=== PATIENT | male | born 1940 | race Caucasian/White ===

== ENCOUNTER 2017-09-04 16:35 | Inpatient (IN) | payer OTHER ==
[~2017-09-04] VITALS: Ht 175.3 cm; Wt 82.5 kg
[~2017-09-04 16:35] MED LIST: ACET-6 PO; ASPI81TA27 PO; B-COTAB76 OR; CALC600T57 PO; CARV6.2551 PO; CLOP75TA41 PO; NIAC250C16 PO; OMEGCAP28 OR; SIMV10TA84 PO; TERA2CAP45 PO; VITA200T2 PO; [UNRECOGNIZED DRUG - CODE] PO
[2017-09-04] MEDS ORDERED: SODIUM CHLORIDE 0.9% 1,000 ML IV SCH ×2 (17:15→18:45)
[2017-09-04] MEDS ORDERED: MORPHINE SULFATE 10 MG/ML INJ 1ML SDV IV PRN (17:15)
[2017-09-04] MEDS ORDERED: NITROGLYCERIN 0.4 MG SL TAB SL PRN (17:15)
[2017-09-04 17:21] VITALS: BP 146/79
[2017-09-04 18:13] LABS: Basophils # (auto) 0.1 uL; Basophils % (auto) 0.7 % (0.0-2.0); Eosinophils # (auto) 0.2 uL; Eosinophils % (auto) 2.3 % (0.0-7.0); Hematocrit 43.8 % (41.0-53.0); Hemoglobin 14.9 g/dL (13.5-17.5); Lymphocytes # (auto) 1.3 uL; Lymphocytes % (auto) 17.2 % (10.0-50.0); Mean Corpuscular Volume 97.1 fL (80.0-100.0); Monocytes # (auto) 0.8 uL; Monocytes % (auto) 11.1 % (0.0-12.0); Neutrophils # (auto) 5.2 uL; Neutrophils % (auto) 68.7 % (37.0-80.0); Nucleated Red Blood Cells % 0.1 %; Platelet Count (auto) 132 10^3/uL (140-450); Red Blood Cells 4.51 10^6/uL (4.5-5.90); Red Cell Distribution Width 13.7 % (11.8-14.3); White Blood Cell 7.5 10^3/uL (4.4-10.8)
[2017-09-04 18:22] LABS: INR 1.04 (0.9-1.15); Partial Thromboplastin Time 27.6 sec (23.78-33.04); Prothrombin Time 11.1 sec (9.27-12.13)
[2017-09-04 18:25] LABS: BUN/Creatinine Ratio 13.4; Calcium 8.6 mg/dL (8.5-10.1); Potassium 4.3 mmol/L (3.5-5.1)
[2017-09-04] MEDS ORDERED: QUET50TA PO (18:26)
[2017-09-04] MEDS ORDERED: TAM04C PO (18:26)
[2017-09-04] MEDS ORDERED: FINA5TAB4 PO (18:26)
[2017-09-04] MEDS ORDERED: LORA1TAB12 PO (18:26)
[2017-09-04] MEDS ORDERED: ACETAMINOPHEN 500 MG TAB PO PRN (18:30)
[2017-09-04] MEDS ORDERED: TAMSULOSIN HYDROCHLORIDE 0.4 MG CAP PO SCH (18:41)
[2017-09-04] MEDS ORDERED: LORazepam 0.5 MG TAB PO PRN ×2 (19:00→19:15)
[2017-09-04] MEDS: FATTY ACIDS OMEGA OR SCH (21:44)
[2017-09-04] MEDS: [UNRECOGNIZED DRUG - OTHER] PO SCH (21:44)
[2017-09-04] MEDS: OMEGA FA OR SCH (21:44)
[2017-09-04] MEDS: CIPROFLOXACIN HYDROCHLORIDE 250 MG TAB PO SCH (21:44)
[2017-09-04] MEDS: SAW PALMETTO PO SCH (21:44)
[2017-09-04] MEDS: NIACIN 100 MG TAB PO SCH (21:45)
[2017-09-04] MEDS: CARVEDILOL 3.125 MG TAB PO SCH (21:45)
[2017-09-04 22:00] VITALS: BP 141/74
[2017-09-04] MEDS ORDERED: PRAVASTATIN SODIUM 20 MG TAB PO SCH (22:00)
[2017-09-04] MEDS ORDERED: MORPHINE SULF INJ 2 MG/ML SYRINGE 1ML IV PRN (22:00)
[2017-09-04] MEDS ORDERED: MORPHINE SULFATE 4 MG/ML SYR/VIAL IV PRN (22:00)
[2017-09-04] MEDS ORDERED: QUEtiapine FUMARATE 100 MG TAB PO SCH (22:00)
[2017-09-04] MEDS ORDERED: TERAZOSIN HCL 1 MG CAP PO SCH (22:00)
[2017-09-05] MEDS ORDERED: LACTULOSE 20Gm/30ML SOLN PO PRN (01:00)
[2017-09-05] MEDS ORDERED: KETOROLAC TROMETH 30 MG/ML 1ML VIAL IV ONE (01:00)
[2017-09-05 04:42] VITALS: BP 122/69
[2017-09-05] MEDS: NIACIN 100 MG TAB PO SCH (05:47)
[2017-09-05] MEDS: FATTY ACIDS OMEGA OR SCH (05:47)
[2017-09-05] MEDS: OMEGA FA OR SCH (05:47)
[2017-09-05 08:32] VITALS: BP 146/83
[2017-09-05] MEDS ORDERED: CEFAZOLIN IV ONE (08:51)
[2017-09-05] MEDS ORDERED: CIPROFLOXACIN 400MG/200ML 200 ML IV ONE (08:58)
[2017-09-05] MEDS ORDERED: LIDOCAINE HCL 2 %PF INJ 10ML AMP IJ ONE (09:08)
[2017-09-05] MEDS ORDERED: DEXAMETHASONE SOD PHOS 10MG/1ML VIAL INJ ONE (09:08)
[2017-09-05] MEDS ORDERED: ePHEDrine SULFATE 50 MG/ML AMP ONE (09:08)
[2017-09-05] MEDS ORDERED: fentaNYL CITRATE 100 MCG/2 ML VL ONE (09:09)
[2017-09-05] MEDS ORDERED: PROPOFOL 10 MG/ML 20 ML IV ONE (09:09)
[2017-09-05] MEDS ORDERED: ONDANSETRON HCL 4 MG/2 ML VIAL ONE (09:09)
[2017-09-05] MEDS ORDERED: ePHEDrine SULFATE 50 MG/ML AMP IV PRN (09:15)
[2017-09-05] MEDS ORDERED: LABETALOL HCL 5 MG/ML 4ML SYRINGE IV PRN (09:15)
[2017-09-05] MEDS ORDERED: HYDROmorphone HCL 2 MG/ML VL IV PRN ×2 (09:15)
[2017-09-05] MEDS ORDERED: ONDANSETRON HCL 4 MG/2 ML VIAL IV ONE (09:15)
[2017-09-05] MEDS ORDERED: hydrALAZINE HCL 20 MG/ML VL IV PRN (09:15)
[2017-09-05] MEDS ORDERED: METOCLOPRAMIDE HCL 5MG/ml INJ 2ml VIAL IV ONE (09:15)
[2017-09-05] MEDS ORDERED: FOLIC ACI OR SCH (10:00)
[2017-09-05] MEDS: SAW PALMETTO PO SCH (10:00)
[2017-09-05] MEDS: CARVEDILOL 3.125 MG TAB PO SCH (10:00)
[2017-09-05] MEDS ORDERED: B COMPLEX OR SCH (10:00)
[2017-09-05] MEDS ORDERED: [UNRECOGNIZED DRUG - OTHER] PO SCH (10:00)
[2017-09-05] MEDS ORDERED: FINASTERIDE 5 MG TAB PO SCH (10:00)
[2017-09-05] MEDS: [UNRECOGNIZED DRUG - OTHER] PO SCH (10:00)
[2017-09-05] MEDS ORDERED: BIOTIN OR SCH (10:00)
[2017-09-05] MEDS: CIPROFLOXACIN HYDROCHLORIDE 250 MG TAB PO SCH (10:00)
[2017-09-05 12:04] VITALS: BP 132/75
[2017-09-06] MEDS ORDERED: B-COMPLEX W/ C & FOLIC ACID(NEPHROVITE TAB) PO SCH (10:00)
[2017-09-06] MEDS ORDERED: CALCIUM CARB 500 MG CHEW TAB PO SCH (10:00)
== END 2017-09-05 17:37 | disposition home or self-care (01) | DRG 669 ==
LOC: TELE-WESTW 16:35
PROVIDERS: ADMIT Urology; ATTEND Urology
PROC: 0TBC8ZZ Excision of Bladder Neck, Via Natural or Artificial Opening Endoscopic (ICD-10-PCS; principal; 2017-09-05 09:22)
DX: N32.0 Bladder-neck obstruction (principal); N13.8 Other obstructive and reflux uropathy; I11.9 Hypertensive heart disease without heart failure; E78.00 Pure hypercholesterolemia, unspecified; E78.5 Hyperlipidemia, unspecified; I25.2 Old myocardial infarction; N40.1 Benign prostatic hyperplasia with lower urinary tract symptoms; Z96.652 Presence of left artificial knee joint; I25.10 Atherosclerotic heart disease of native coronary artery without angina pectoris; Z82.49 Family history of ischemic heart disease and other diseases of the circulatory system; Z95.5 Presence of coronary angioplasty implant and graft
CPT/HCPCS: 36415; 71045; 80048; 85025; 85610; 85730; 86850; 86900; 86901; J0690; J1100; J1885; J2405; J2704

== ENCOUNTER → 2017-11-09 | Day surgery (SDC) | payer OTHER ==
[2017-11-06 10:28] LABS: Basophils # (auto) 0.1 uL; Basophils % (auto) 1.2 % (0.0-2.0); Eosinophils # (auto) 0.2 uL; Eosinophils % (auto) 4.2 % (0.0-7.0); Hematocrit 46.1 % (41.0-53.0); Hemoglobin 15.4 g/dL (13.5-17.5); Lymphocytes # (auto) 1.1 uL; Lymphocytes % (auto) 22.5 % (10.0-50.0); Mean Corpuscular Hemoglobin 32.5 pg (28.0-32.0); Mean Corpuscular Hgb Conc. 33.5 g/dL (32.0-36.0); Mean Corpuscular Volume 96.9 fL (80.0-100.0); Monocytes # (auto) 0.6 uL; Monocytes % (auto) 12.1 % (0.0-12.0); Neutrophils # (auto) 2.9 uL; Platelet Count (auto) 147 10^3/uL (140-450); Red Blood Cells 4.75 10^6/uL (4.5-5.90); Red Cell Distribution Width 13.5 % (11.8-14.3); White Blood Cell 4.8 10^3/uL (4.4-10.8)
[2017-11-06 10:38] LABS: Urine Bacteria NONE SEEN /hpf (None Seen); Urine Blood Negative /uL (Negative); Urine Specific Gravity 1.021 (1.001-1.035); Urine WBC 7 /hpf (0 - 3)
[2017-11-06 10:42] LABS: Partial Thromboplastin Time 27.8 sec (23.78-33.04); Prothrombin Time 10.7 sec (9.27-12.13)
[2017-11-06 10:45] LABS: BUN/Creatinine Ratio 16.1; Calcium 8.4 mg/dL (8.5-10.1); Potassium 3.8 mmol/L (3.5-5.1)
[~2017-11-09] VITALS: Ht 175.3 cm; Wt 79.8 kg
[~2017-11-09] MED LIST changes: -ACET-6 PO; +B-COTAB59 OR; -B-COTAB76 OR; +CIPROFLOXACIN 400MG/200ML 200 ML IV ONE; +CLOP75TA28 PO; -CLOP75TA41 PO; +ETOMIDATE (2MG/ML) 20ML VIAL IV ONE; +FINA5TAB4 PO; +LIDOCAINE 1% (LOCAL ANESTH.) PF 5ml SDV ONE; +LIDOCAINE HCL 2% TOP JELLY 5ML TOP ONE; +LORA1TAB12 PO; +METOCLOPRAMIDE HCL 5MG/ml INJ 2ml VIAL ONE; +MIDAZOLAM HCL 1MG/1ML-2 ML VIAL ONE; +MORPHINE SULF INJ 2 MG/ML SYRINGE 1ML IV PRN; +NALOXONE HCL 0.4 MG/ML VIAL IV PRN; +NAPR220C PO; +ONDANSETRON HCL 4 MG/2 ML VIAL IV ONE; +QUET50TA PO; +TAM04C PO; -TERA2CAP45 PO; +TURM500C3 OR; -[UNRECOGNIZED DRUG - CODE] PO; +ePHEDrine SULFATE 50 MG/ML AMP ONE; +fentaNYL CITRATE 100 MCG/2 ML VL ONE
[2017-11-09 11:56] VITALS: BP 128/80
== END | disposition home or self-care (01) ==
LOC: SUR 07:30
PROVIDERS: ATTEND Urology
DX: D30.3 Benign neoplasm of bladder (principal); N30.10 Interstitial cystitis (chronic) without hematuria; N32.0 Bladder-neck obstruction; I25.10 Atherosclerotic heart disease of native coronary artery without angina pectoris; I10 Essential (primary) hypertension; M19.90 Unspecified osteoarthritis, unspecified site; N40.1 Benign prostatic hyperplasia with lower urinary tract symptoms; I49.9 Cardiac arrhythmia, unspecified; F32.9 Major depressive disorder, single episode, unspecified; J40 Bronchitis, not specified as acute or chronic; F41.9 Anxiety disorder, unspecified; M06.9 Rheumatoid arthritis, unspecified; Z86.79 Personal history of other diseases of the circulatory system; Z96.652 Presence of left artificial knee joint; Z88.0 Allergy status to penicillin; Z87.891 Personal history of nicotine dependence; Z80.1 Family history of malignant neoplasm of trachea, bronchus and lung; Z98.890 Other specified postprocedural states; Z82.49 Family history of ischemic heart disease and other diseases of the circulatory system
CPT/HCPCS: 36415; 52500; 80048; 81001; 85025; 85610; 85730; 87086; 88307; C1769; J0744; J2250; J2765; J3010; J7030

== ENCOUNTER → 2021-07-25 | Day surgery (SDC) | payer OTHER ==
[~2021-07-25] VITALS: Ht 175.3 cm; Wt 81.6 kg
[~2021-07-25] MED LIST changes: +ASPI-543 PO; -ASPI81TA27 PO; +CALC1TAB92 PO; -CALC600T57 PO; -ETOMIDATE (2MG/ML) 20ML VIAL IV ONE; -FINA5TAB4 PO; +HYDROmorphone HCL 2 MG/ML VL IV PRN; -LIDOCAINE 1% (LOCAL ANESTH.) PF 5ml SDV ONE; -LIDOCAINE HCL 2% TOP JELLY 5ML TOP ONE; -LORA1TAB12 PO; +LORA1TAB23 PO; +METOCLOPRAMIDE HCL 5MG/ml INJ 2ml VIAL IV PRN; -METOCLOPRAMIDE HCL 5MG/ml INJ 2ml VIAL ONE; -MIDAZOLAM HCL 1MG/1ML-2 ML VIAL ONE; +MIDAZOLAM HCL 2MG/2ML 2ml VIAL (1mg/ml) ONE; -MORPHINE SULF INJ 2 MG/ML SYRINGE 1ML IV PRN; -NALOXONE HCL 0.4 MG/ML VIAL IV PRN; -ONDANSETRON HCL 4 MG/2 ML VIAL IV ONE; +ONDANSETRON HCL 4 MG/2 ML VIAL IV PRN; +SUCCINYLCHOLINE CHLORIDE 20 MG/ML 10ML VIAL IV ONE; +TRIAMCINOLONE 40MG/ML 1ML VIAL ONE; -ePHEDrine SULFATE 50 MG/ML AMP ONE
[2021-07-25 14:20] VITALS: BP 158/79
== END | disposition home or self-care (01) ==
LOC: SUR 10:20
PROVIDERS: ATTEND Urology
DX: N39.41 Urge incontinence (principal); N32.0 Bladder-neck obstruction; N21.0 Calculus in bladder; F41.9 Anxiety disorder, unspecified; I25.2 Old myocardial infarction; F32.A Depression, unspecified; I25.119 Atherosclerotic heart disease of native coronary artery with unspecified angina pectoris; Z96.652 Presence of left artificial knee joint; Z88.0 Allergy status to penicillin; Z20.822 Contact with and (suspected) exposure to COVID-19; Z87.891 Personal history of nicotine dependence; Z95.5 Presence of coronary angioplasty implant and graft; Z82.49 Family history of ischemic heart disease and other diseases of the circulatory system; Z80.1 Family history of malignant neoplasm of trachea, bronchus and lung
CPT/HCPCS: 52500; 96372; J0330; J0744; J2250; J3010; J3301; U0003

== ENCOUNTER 2021-11-26 13:18 | Emergency (ER) | payer OTHER ==
[~2021-11-26] VITALS: Ht 175.3 cm; Wt 85.0 kg
[~2021-11-26 13:18] MED LIST changes: -CIPROFLOXACIN 400MG/200ML 200 ML IV ONE; -HYDROmorphone HCL 2 MG/ML VL IV PRN; -METOCLOPRAMIDE HCL 5MG/ml INJ 2ml VIAL IV PRN; -MIDAZOLAM HCL 2MG/2ML 2ml VIAL (1mg/ml) ONE; -ONDANSETRON HCL 4 MG/2 ML VIAL IV PRN; -SUCCINYLCHOLINE CHLORIDE 20 MG/ML 10ML VIAL IV ONE; -TRIAMCINOLONE 40MG/ML 1ML VIAL ONE; -fentaNYL CITRATE 100 MCG/2 ML VL ONE
[2021-11-26 13:58] VITALS: BP 145/80
[2021-11-26 14:18] LABS: Urine Bacteria NONE SEEN /hpf (None Seen); Urine Blood Negative /uL (Negative); Urine Specific Gravity 1.023 (1.001-1.035); Urine WBC 3 /hpf (0 - 3)
[2021-11-26 14:38] LABS: Basophils # (auto) 0 10 ^3/uL (0-0.2); Basophils % (auto) 0.7 % (0.0-2.0); Eosinophils # (auto) 0.2 10 ^3/uL (0-0.8); Eosinophils % (auto) 2.8 % (0.0-7.0); Lymphocytes % (auto) 15.4 % (10.0-50.0); Mean Corpuscular Hemoglobin 31.4 pg (28.0-32.0); Mean Corpuscular Hgb Conc. 33.3 g/dL (32.0-36.0); Mean Corpuscular Volume 94.1 fL (80.0-100.0); Monocytes # (auto) 0.8 10 ^3/uL (0-1.3); Monocytes % (auto) 12.5 % (0.0-12.0); Neutrophils # (auto) 4.2 10 ^3/uL (1.6-8.6); Neutrophils % (auto) 68.6 % (37.0-80.0); Red Blood Cells 4.78 10^6/uL (4.5-5.90); Red Cell Distribution Width 13.5 % (11.8-14.3); White Blood Cell 6.2 10^3/uL (4.4-10.8)
[2021-11-26 15:35] LABS: Albumin 3.6 g/dL (3.4-5.0); Calcium 8.8 mg/dL (8.5-10.1); Potassium 4.1 mmol/L (3.5-5.1)
[2021-11-26 15:37] LABS: BUN/Creatinine Ratio 16.4; Total Protein 6.2 g/dL (6.4-8.2)
== END 2021-11-26 16:08 | disposition left against medical advice (07) ==
LOC: ER 13:18
DX: R30.0 Dysuria (principal); I25.2 Old myocardial infarction; Z87.442 Personal history of urinary calculi; Z79.82 Long term (current) use of aspirin; Z79.01 Long term (current) use of anticoagulants; Z79.899 Other long term (current) drug therapy; Z88.0 Allergy status to penicillin
CPT/HCPCS: 36415; 80053; 81001; 85025

== ENCOUNTER → 2022-01-30 | Outpatient (CLI) | payer OTHER ==
[~2022-01-30] VITALS: Ht 175.3 cm; Wt 86.2 kg
== END | disposition home or self-care (01) ==
LOC: SUR 06:40 → EDSTATUS 14:41
PROVIDERS: ATTEND Urology
DX: U07.1 COVID-19 (principal)

== ENCOUNTER → 2022-03-06 | Day surgery (SDC) | payer OTHER ==
[~2022-03-06] VITALS: Ht 175.3 cm; Wt 86.2 kg
[~2022-03-06] MED LIST changes: +CIPROFLOXACIN 400MG/200ML 200 ML IV ONE; +DexAMETHasone SOD PHOS 10MG/1ML VIAL INJ ONE; +GLYCOPYRROLATE 0.2 MG/ML 1ML VIAL ONE; +KETAMINE HCL 10 ML ONE; +LIDOCAINE 2% (LOCAL ANESTH.) PF 5ml SDV ONE; +ONDANSETRON HCL 4 MG/2 ML VIAL ONE; +PHENYLEPHRINE HCL 10 MG/ML VL ONE; +PROPOFOL 10 MG/ML 20 ML IV ONE; +SODIUM CHLORIDE LOCK 10 ML ONE; +SODIUM CHLORIDE LOCK 20 ML ONE; +ePHEDrine SULFATE 50 MG/ML AMP ONE; +fentaNYL CITRATE 100 MCG/2 ML VL ONE
[2022-03-06 09:45] VITALS: BP 145/74
== END | disposition home or self-care (01) ==
LOC: SUR 06:21
PROVIDERS: ATTEND Urology
DX: N32.0 Bladder-neck obstruction (principal); N30.81 Other cystitis with hematuria; Z20.822 Contact with and (suspected) exposure to COVID-19; N21.0 Calculus in bladder
CPT/HCPCS: 52204; 52640; 88300; 88305; J0744; J1100; J2001; J2370; J2405; J2704; J7030; U0003

== ENCOUNTER → 2022-07-02 | Day surgery (SDC) | payer OTHER ==
[~2022-07-02] VITALS: Ht 175.3 cm; Wt 89.4 kg
[~2022-07-02] MED LIST changes: -CIPROFLOXACIN 400MG/200ML 200 ML IV ONE; -DexAMETHasone SOD PHOS 10MG/1ML VIAL INJ ONE; -GLYCOPYRROLATE 0.2 MG/ML 1ML VIAL ONE; +HYDR-4798 PO; +HYDROmorphone HCL 2 MG/ML VL/or syr IV PRN; -KETAMINE HCL 10 ML ONE; -LIDOCAINE 2% (LOCAL ANESTH.) PF 5ml SDV ONE; +MORPHINE SULFATE 4 MG/ML SYR/VIAL IV ONE; +ONDANSETRON HCL 4 MG/2 ML VIAL IV ONE; -ONDANSETRON HCL 4 MG/2 ML VIAL ONE; -PHENYLEPHRINE HCL 10 MG/ML VL ONE; -PROPOFOL 10 MG/ML 20 ML IV ONE; -SODIUM CHLORIDE LOCK 10 ML ONE; -SODIUM CHLORIDE LOCK 20 ML ONE; -ePHEDrine SULFATE 50 MG/ML AMP ONE; -fentaNYL CITRATE 100 MCG/2 ML VL ONE; +levoFLOXacin 500MG 100 ML IV ONE
[2022-07-02 14:32] LABS: INR 1.02 (0.9-1.15)
[2022-07-02 14:47] LABS: Basophils # (auto) 0 10 ^3/uL (0-0.2); Basophils % (auto) 0.5 % (0.0-2.0); Eosinophils # (auto) 0.3 10 ^3/uL (0-0.8); Eosinophils % (auto) 3.1 % (0.0-7.0); Hematocrit 43.8 % (41.0-53.0); Hemoglobin 14.9 g/dL (13.5-17.5); Lymphocytes # (auto) 1.2 10 ^3/uL (0.4-5.4); Lymphocytes % (auto) 13.1 % (10.0-50.0); Mean Corpuscular Hemoglobin 31.3 pg (28.0-32.0); Mean Corpuscular Hgb Conc. 34.1 g/dL (32.0-36.0); Mean Corpuscular Volume 91.9 fL (80.0-100.0); Monocytes # (auto) 1.1 10 ^3/uL (0-1.3); Monocytes % (auto) 12.3 % (0.0-12.0); Neutrophils # (auto) 6.3 10 ^3/uL (1.6-8.6); Red Blood Cells 4.77 10^6/uL (4.5-5.90); White Blood Cell 8.9 10^3/uL (4.4-10.8)
[2022-07-02 20:27] LABS: Urine Bacteria MOD /hpf (None Seen); Urine Blood 3+ /uL (Negative); Urine Mucus FEW (None Seen); Urine WBC 4290 /hpf (0 - 3); Urine WBC Clumps PRESENT /hpf (None Seen)
[2022-07-02 20:29] LABS: Urine Specific Gravity 1.013 (1.001-1.035)
[2022-07-02 21:30] VITALS: BP 132/70
== END | disposition home or self-care (01) ==
LOC: ER 13:13 → SUR 13:14 → ER 18:09
PROVIDERS: ATTEND Urology
DX: N32.0 Bladder-neck obstruction (principal); R33.8 Other retention of urine; N40.1 Benign prostatic hyperplasia with lower urinary tract symptoms; N13.8 Other obstructive and reflux uropathy; I10 Essential (primary) hypertension; I25.10 Atherosclerotic heart disease of native coronary artery without angina pectoris; Z79.899 Other long term (current) drug therapy
CPT/HCPCS: 36415; 52640; 81001; 85025; 85610; 87086; 87088; 87186; 87426; 88305; 88342; 99285; J1956

== ENCOUNTER 2022-11-17 19:35 | Inpatient (IN) | payer OTHER ==
[~2022-11-17] VITALS: Ht 175.3 cm; Wt 87.0 kg
[2022-11-17] MEDS: TAMSULOSIN HYDROCHLORIDE 0.4 MG CAP PO SCH (00:30)
[~2022-11-17 19:35] MED LIST changes: -HYDROmorphone HCL 2 MG/ML VL/or syr IV PRN; +LORA-1123 PO; -LORA1TAB23 PO; -MORPHINE SULFATE 4 MG/ML SYR/VIAL IV ONE; -ONDANSETRON HCL 4 MG/2 ML VIAL IV ONE; +SIMV10TA20 PO; -SIMV10TA84 PO; -TAM04C PO; +TAMS-35 PO; -levoFLOXacin 500MG 100 ML IV ONE
[2022-11-17] MEDS ORDERED: KETOROLAC TROMETH 30 MG/ML 1ML VIAL IV PRN (20:15)
[2022-11-17 22:00] VITALS: BP 137/78; PULSE 82; RESP 18; TEMP 97.5; O2SAT 93
[2022-11-17 22:12] LABS: Basophils # (auto) 0 10 ^3/uL (0-0.2); Basophils % (auto) 0.6 % (0.0-2.0); Eosinophils # (auto) 0.3 10 ^3/uL (0-0.8); Eosinophils % (auto) 3.3 % (0.0-7.0); Hematocrit 45.2 % (41.0-53.0); Hemoglobin 15.1 g/dL (13.5-17.5); Lymphocytes # (auto) 1.5 10 ^3/uL (0.4-5.4); Lymphocytes % (auto) 18.6 % (10.0-50.0); Mean Corpuscular Hemoglobin 30.9 pg (28.0-32.0); Mean Corpuscular Hgb Conc. 33.3 g/dL (32.0-36.0); Mean Corpuscular Volume 92.8 fL (80.0-100.0); Monocytes % (auto) 12.2 % (0.0-12.0); Neutrophils # (auto) 5.3 10 ^3/uL (1.6-8.6); Neutrophils % (auto) 65.3 % (37.0-80.0); Nucleated Red Blood Cells % 0.1 %; Red Blood Cells 4.87 10^6/uL (4.5-5.90); Red Cell Distribution Width 14.9 % (11.8-14.3); White Blood Cell 8.2 10^3/uL (4.4-10.8)
[2022-11-17 22:30] LABS: INR 1.1 (0.9-1.15); Partial Thromboplastin Time 26.7 SEC (24.5-34.5); Prothrombin Time 11.5 sec (9.3-11.8)
[2022-11-17 22:32] LABS: Urine Bacteria NONE SEEN /hpf (None Seen); Urine Blood Negative /uL (Negative); Urine Clarity Clear (Clear); Urine Color Yellow (Yellow); Urine Protein, UAD 2+ (Negative); Urine Urobilinogen Normal (Negative); Urine WBC 102 /hpf (0 - 3)
[2022-11-17 22:32] LABS: Albumin 3.6 g/dL (3.4-5.0); Calcium 8.6 mg/dL (8.5-10.1); Potassium 3.7 mmol/L (3.5-5.1)
[2022-11-17 22:33] LABS: Urine Specific Gravity > 1.050 (1.001-1.035)
[2022-11-17 22:35] LABS: Bilirubin, Total 0.6 mg/dL (0.2-1.0)
[2022-11-17 22:36] LABS: BUN/Creatinine Ratio 11.9 (10.0-20.0)
[2022-11-18] VITALS (7 sets, daily range): BP systolic 125–162; BP diastolic 62–85; PULSE 81–85; RESP 16–18; TEMP 97.6–98.6; O2SAT 92–95
[2022-11-18] MEDS: TAMSULOSIN HYDROCHLORIDE 0.4 MG CAP PO SCH
[2022-11-18] MEDS: SODIUM CHLORIDE 0.9% 1,000 ML IV SCH ×4 (00:42→20:15)
[2022-11-18] MEDS ORDERED: FINA5TAB4 PO (01:06)
[2022-11-18] MEDS ORDERED: CIPR500T4 PO (01:06)
[2022-11-18] MEDS ORDERED: levoFLOXacin 500MG 100 ML IV ONE (04:00)
[2022-11-18] MEDS: ONDANSETRON HCL 4 MG/2 ML VIAL IV PRN ×2 (08:10→13:39)
[2022-11-18] MEDS: CARVEDILOL 3.125 MG TAB PO SCH ×2 (08:13→21:39)
[2022-11-18] MEDS: CLOPIDOGREL BISULFATE 75 MG TAB PO SCH ×2 (08:14→13:57)
[2022-11-18] MEDS ORDERED: TAMSULOSIN HYDROCHLORIDE 0.4 MG CAP PO SCH (18:00)
[2022-11-19] MEDS ORDERED: levoFLOXacin 250MG 50 ML IV SCH (04:00)
[2022-11-19] MEDS: SODIUM CHLORIDE 0.9% 1,000 ML IV SCH (04:09)
[2022-11-19 05:00] VITALS: BP 138/74; PULSE 79; RESP 18; TEMP 97.9; O2SAT 92
[2022-11-19] MEDS: CLOPIDOGREL BISULFATE 75 MG TAB PO SCH (07:32)
[2022-11-19 07:46] VITALS: PULSE 80; RESP 16; O2SAT 93
[2022-11-19] MEDS: CARVEDILOL 3.125 MG TAB PO SCH (09:34)
[2022-11-19 12:00] VITALS: BP 106/75; PULSE 64; RESP 16; TEMP 97.6; O2SAT 95
[2022-11-19 13:00] VITALS: BP 136/75; PULSE 69; RESP 20; TEMP 98.1; O2SAT 95
[2022-11-19 15:22] VITALS: BP 130/73; PULSE 78; TEMP 36.7
[2022-11-20] MEDS ORDERED: LEVO250T58 PO (12:34)
[2022-11-20] MEDS ORDERED: ZOFR4T PO (12:34)
== END 2022-11-19 16:35 | disposition home or self-care (01) | DRG 694 ==
LOC: OVERFLOW 19:35 → EAST 19:45 → WEST WING 11-19 11:39
PROVIDERS: ADMIT Hospitalist; ATTEND Hospitalist
DX: N20.1 Calculus of ureter (principal); N39.0 Urinary tract infection, site not specified; N40.1 Benign prostatic hyperplasia with lower urinary tract symptoms; N13.9 Obstructive and reflux uropathy, unspecified; R91.8 Other nonspecific abnormal finding of lung field; I25.10 Atherosclerotic heart disease of native coronary artery without angina pectoris; I10 Essential (primary) hypertension; Z96.659 Presence of unspecified artificial knee joint; Z79.899 Other long term (current) drug therapy; Z80.1 Family history of malignant neoplasm of trachea, bronchus and lung; Z88.0 Allergy status to penicillin; Z95.5 Presence of coronary angioplasty implant and graft; I25.2 Old myocardial infarction; K40.90 Unilateral inguinal hernia, without obstruction or gangrene, not specified as recurrent
CPT/HCPCS: 36415; 71046; 71250; 80053; 81001; 85025; 85610; 85730; 87086; 87088; 87186; G0378; J1956; J2405

== ENCOUNTER 2022-11-23 08:52 | Inpatient (IN) | payer OTHER ==
[~2022-11-23] VITALS: Ht 175.3 cm; Wt 84.9 kg
[~2022-11-23 08:52] MED LIST changes: -ASPI-543 PO; -CLOP75TA28 PO; +FINA5TAB4 PO; +LEVO250T58 PO; -LORA-1123 PO; -NAPR220C PO; +ZOFR4T PO
[2022-11-23] MEDS ORDERED: CLOP75TA28 PO (09:18)
[2022-11-23 09:32] LABS: Basophils # (auto) 0.1 10 ^3/uL (0-0.2); Basophils % (auto) 1.5 % (0.0-2.0); Eosinophils # (auto) 0.3 10 ^3/uL (0-0.8); Eosinophils % (auto) 3.5 % (0.0-7.0); Hematocrit 46.4 % (41.0-53.0); Hemoglobin 15.6 g/dL (13.5-17.5); Lymphocytes # (auto) 0.7 10 ^3/uL (0.4-5.4); Lymphocytes % (auto) 7.2 % (10.0-50.0); Mean Corpuscular Hgb Conc. 33.7 g/dL (32.0-36.0); Mean Corpuscular Volume 92.1 fL (80.0-100.0); Monocytes # (auto) 0.6 10 ^3/uL (0-1.3); Monocytes % (auto) 6.4 % (0.0-12.0); Neutrophils # (auto) 7.3 10 ^3/uL (1.6-8.6); Neutrophils % (auto) 81.4 % (37.0-80.0); Nucleated Red Blood Cells % 0.1 %; Red Blood Cells 5.03 10^6/uL (4.5-5.90); Red Cell Distribution Width 14.5 % (11.8-14.3)
[2022-11-23] MEDS ORDERED: PROCHLORPERAZINE EDISYLATE 5 MG/ML 2ML VIAL IV ONE (09:45)
[2022-11-23] MEDS ORDERED: SODIUM CHLORIDE 0.9% 1,000 ML IV ONE (09:45)
[2022-11-23] MEDS ORDERED: SODIUM CHLORIDE 0.9% 500 ML IVB ONE (09:45)
[2022-11-23 10:15] LABS: Urine Bacteria NONE SEEN /hpf (None Seen); Urine Blood 3+ /uL (Negative); Urine Budding Yeast OCCASIONAL /hpf (None Seen); Urine Clarity HAZY (Clear); Urine Color Yellow (Yellow); Urine Mucus FEW (None Seen); Urine Protein, UAD 1+ (Negative); Urine Specific Gravity 1.021 (1.001-1.035); Urine Urobilinogen Normal (Negative); Urine WBC 35 /hpf (0 - 3); Urine pH 6.5 (5.0-8.0)
[2022-11-23 11:02] LABS: Albumin 3.7 g/dL (3.4-5.0); BUN/Creatinine Ratio 10.6 (10.0-20.0); Calcium 9.1 mg/dL (8.5-10.1); Potassium 3.9 mmol/L (3.5-5.1)
[2022-11-23 11:05] LABS: Bilirubin, Total 0.7 mg/dL (0.2-1.0); Total Protein 7.5 g/dL (6.4-8.2)
[2022-11-23 11:10] LABS: Magnesium 2.3 mg/dL (1.6-2.6)
[2022-11-23] MEDS ORDERED: cefTRIAXone 1GM/50ML D5W 50 ML IV ONE ×2 (12:30→15:00)
[2022-11-23] MEDS ORDERED: IOHEXOL 300 MG/ML 100ML BOTTLE IJ ONE (12:39)
[2022-11-23] MEDS ORDERED: NITROFURANTOIN 100 mg CAP PO ONE (15:00)
[2022-11-23 15:14] VITALS: PULSE 83; RESP 18; O2SAT 96
[2022-11-23] MEDS ORDERED: HYDROcodone-ACET 5/325MG TAB PO PRN (21:00)
[2022-11-23] MEDS ORDERED: ONDANSETRON HCL 4 MG/2 ML VIAL IV PRN (21:00)
[2022-11-23] MEDS ORDERED: hydrALAZINE HCL 10 MG TAB PO PRN (21:00)
[2022-11-23] MEDS ORDERED: ACETAMINOPHEN 325 MG TAB PO PRN (21:00)
[2022-11-23] MEDS ORDERED: MORPHINE SULFATE INJ 2 MG/ml SYRG IV PRN (21:00)
[2022-11-23 22:00] LABS: INR 1.1 (0.9-1.15); Prothrombin Time 11.5 sec (9.3-11.8)
[2022-11-23] MEDS: SODIUM CHLORIDE 0.9% 1,000 ML IV SCH (22:35)
[2022-11-24 00:25] VITALS: PULSE 82; RESP 18; O2SAT 93
[2022-11-24 05:04] LABS: BUN/Creatinine Ratio 14.9 (10.0-20.0); Calcium 8.1 mg/dL (8.5-10.1); Potassium 3.7 mmol/L (3.5-5.1)
[2022-11-24 07:20] VITALS: PULSE 88; RESP 15; O2SAT 98
[2022-11-24] MEDS: SODIUM CHLORIDE 0.9% 1,000 ML IV SCH ×2 (07:30→17:06)
[2022-11-24] MEDS: cefTRIAXone 1GM/50ML D5W 50 ML IV SCH (10:13)
[2022-11-24] MEDS: TAMSULOSIN HYDROCHLORIDE 0.4 MG CAP PO SCH (10:13)
[2022-11-24 23:00] VITALS: BP 146/75; PULSE 79; RESP 16; TEMP 98.2; O2SAT 96
[2022-11-25] VITALS (7 sets, daily range): BP systolic 134–156; BP diastolic 75–81; PULSE 78–92; RESP 16–20; TEMP 36.4; O2SAT 93–96
[2022-11-25] MEDS: SODIUM CHLORIDE 0.9% 1,000 ML IV SCH ×2 (00:49→11:34)
[2022-11-25] MEDS: cefTRIAXone 1GM/50ML D5W 50 ML IV SCH (09:04)
[2022-11-25] MEDS: TAMSULOSIN HYDROCHLORIDE 0.4 MG CAP PO SCH (10:00)
[2022-11-25] MEDS ORDERED: MIDAZOLAM HCL 2MG/2ML 2ml VIAL (1mg/ml) IV ONE (11:30)
[2022-11-25] MEDS ORDERED: fentaNYL CITRATE 100 MCG/2 ML VL IV ONE (11:30)
[2022-11-25] MEDS ORDERED: LIDOCAINE 2%HCL (LOCAL ANESTH.) INJ 20ML MDV ONE (12:50)
[2022-11-25] MEDS ORDERED: IODIXANOL 320MG/ML 100ML BTL IV ONE (12:50)
[2022-11-25] MEDS ORDERED: LIDOCAINE 2%HCL (LOCAL ANESTH.) INJ 10ml MDV ONE (14:11)
[2022-11-25] MEDS ORDERED: HYDROcodone-ACET 10/325MG TAB PO PRN (16:45)
[2022-11-25] MEDS ORDERED: QUEtiapine FUMARATE 100 MG TAB PO SCH (22:00)
[2022-11-25] MEDS ORDERED: CARVEDILOL 3.125 MG TAB PO SCH (22:00)
[2022-11-26] MEDS ORDERED: FINASTERIDE 5 MG TAB PO SCH (10:00)
== END 2022-11-25 19:32 | disposition home health service (06) | DRG 690 ==
LOC: ER 08:52 → TELE 21:14 → TELE-WESTW 11-24 22:40
PROVIDERS: ADMIT Nurse Practitioner Family; ATTEND Hospitalist
PROC: 0BBK3ZX Excision of Right Lung, Percutaneous Approach, Diagnostic (ICD-10-PCS; principal; 2022-11-25)
PROC: 0T9030Z Drainage of Right Kidney with Drainage Device, Percutaneous Approach (ICD-10-PCS; 2022-11-25)
DX: N13.6 Pyonephrosis (principal); N20.2 Calculus of kidney with calculus of ureter; N40.0 Benign prostatic hyperplasia without lower urinary tract symptoms; K40.90 Unilateral inguinal hernia, without obstruction or gangrene, not specified as recurrent; I10 Essential (primary) hypertension; I25.10 Atherosclerotic heart disease of native coronary artery without angina pectoris; R91.8 Other nonspecific abnormal finding of lung field; Z98.61 Coronary angioplasty status; I25.2 Old myocardial infarction; Z88.0 Allergy status to penicillin; Z90.79 Acquired absence of other genital organ(s); Z80.1 Family history of malignant neoplasm of trachea, bronchus and lung; Z82.49 Family history of ischemic heart disease and other diseases of the circulatory system
CPT/HCPCS: 10005; 36415; 71045; 71250; 74177; 74425; 76775; 76942; 77012; 80048; 80053; 81001; 83690; 83735; 85025; 85610; 87081; 87086; 93005; G0378; J0696; J2001; J2250; J2405; Q9967